=== PATIENT | male | born 1950 | race Caucasian/White ===

== ENCOUNTER 2018-08-05 16:45 | Inpatient (IN) | payer MEDICARE ==
[~2018-08-05] VITALS: Ht 177.8 cm; Wt 88.1 kg
[2018-08-05] VITALS (7 sets, daily range): BP systolic 150–180; BP diastolic 91–104
[2018-08-05] MEDS ORDERED: DILTIAZEM HCL 5 MG/ML 5 ML VIAL IV ONE (17:00)
[2018-08-05] MEDS ORDERED: DILTIAZEM HCL 5 MG/ML 5 ML VIAL IV STA (17:04)
[2018-08-05] MEDS ORDERED: SODIUM CHLORIDE 0.9% 1000ML 1,000 ML ONE (17:08)
[2018-08-05] MEDS ORDERED: SODIUM CHLORIDE 0.9% 1000ML 1,000 ML IV ONE ×2 (17:15→17:40)
[2018-08-05] MEDS ORDERED: DILTIAZEM HCL 100 ML IV ONE (17:50)
[2018-08-05] MEDS ORDERED: DILTIAZEM HCL IV SOLN 125 MG in SODIUM CHLORIDE 0.9% 100 ML 100 ML IV ONE (18:00)
--- NOTE | 2018-08-05 18:03 | Diagnostic Imaging Report ---
EXAMINATION: CHEST SINGLE (PORTABLE) INDICATION: Shortness of breath. COMPARISON: None FINDINGS: TUBES and LINES: None. LUNGS: Lungs are well inflated. Lungs are clear. There is no evidence of pneumonia or pulmonary edema. PLEURA: No pleural effusion or pneumothorax. HEART AND MEDIASTINUM: The cardiomediastinal silhouette is unremarkable. BONES AND SOFT TISSUES: No acute osseous lesion. Soft tissues are unremarkable. UPPER ABDOMEN: No free air under the diaphragm. IMPRESSION: No acute thoracic abnormality. Signed by: Dr. Jose Earl M.D. on 08/05/2018 6:00 PM
[2018-08-05] MEDS ORDERED: SODIUM CHLORIDE 0.9% 1000ML 1,000 ML IV SCH (18:15)
[2018-08-05] MEDS ORDERED: ONDANSETRON HCL INJ 2 MG/ML VIAL IV PRN (18:30)
[2018-08-05] MEDS ORDERED: ASPIRIN 81 MG CHEW TAB PO ONE (18:30)
[2018-08-05] MEDS ORDERED: SODIUM CHLORIDE FLUSH 10 ML SYR INJ PRN (18:30)
--- OUTSIDE RECORDS SUMMARY | 2018-08-05 18:44 | XMS REPORT ---
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 Allergies, Adverse Reactions, Alerts This patient has no known allergies or adverse reactions. Medications This patient has no known medications. Results Test Description Test Time Test Comments Text Results Atomic Results Result Comments CHEST SINGLE (PORTABLE) 2018-08-05 18:00:00 [facility] [address] [place] [address] Patient Name: JESE MREIDA MR #: [id number] : 1950 Age/Sex: 67/M Req #: [id number] Adm Physician: Ordered by: HECTOR CORREA MD Report #: [id number] Location: ER Room/Bed: Procedure: [id number] DX/CHEST SINGLE (PORTABLE) Exam Date: Exam Time: REPORT STATUS: Signed EXAMINATION: CHEST SINGLE (PORTABLE) INDICATION: Shortness of breath. COMPARISON: None FINDINGS: TUBES and LINES: None. LUNGS: Lungs are well inflated. Lungs are clear. There is no evidence of pneumonia or pulmonary edema. PLEURA: No pleural effusion or pneumothorax. HEART AND MEDIASTINUM: The cardiomediastinal silhouette is unremarkable. BONES AND SOFT TISSUES: No acute osseous lesion. Soft tissues are unremarkable. UPPER ABDOMEN: No free air under the diaphragm. IMPRESSION: No acute thoracic abnormality. Signed by: Dr. Jose Newell M.D. on 08/05/2018 6:00 PM Dictated By: DAPHNE NEWELL MD, MD 99 Transcribed By: NEO on 08/05/181799 COPY TO: HECTOR CORREA MD
[2018-08-05 19:01] LABS: BASOPHILS # (AUTO) 0.1 (0.0-0.1); BASOPHILS % 0.5 % (0.0-1.0); EOSINOPHILS # (AUTO) 0.2 (0.0-0.4); EOSINOPHILS % 2.1 % (0.0-6.0); HEMATOCRIT 41.5 % (38.2-49.6); HEMOGLOBIN 13.2 g/dL (14.0-18.0); LYMPHOCYTES # (AUTO) 1.8 (1.0-3.2); LYMPHOCYTES % 19.1 % (18.0-39.1); MEAN CORPUSCULAR HEMOGLOBIN 26.6 pg (28-32); MEAN CORPUSCULAR HGB CONC 31.8 g/dL (31-35); MEAN CORPUSCULAR VOLUME 83.7 fL (81-99); MONOCYTES # (AUTO) 0.8 (0.2-0.8); MONOCYTES % 8.8 % (4.4-11.3); NEUTROPHILS # (AUTO) 6.6 (2.1-6.9); NEUTROPHILS % 69.1 % (38.7-80.0); PLATELET COUNT 325 x10e3/uL (140-360); RED BLOOD COUNT 4.96 x10e6/uL (4.3-5.7); RED CELL DISTRIBUTION WIDTH 14.5 % (11.7-14.4)
[2018-08-05] MEDS: SODIUM CHLORIDE 0.9% 1000ML 1,000 ML IV SCH (19:01)
[2018-08-05 19:25] LABS: ALANINE AMINOTRANSFERASE 20 IU/L (0-55); ALBUMIN 4.1 g/dL (3.5-5.0); ALBUMIN/GLOBULIN RATIO 1.2 (0.8-2.0); ALKALINE PHOSPHATASE 97 IU/L (40-150); ANION GAP 17.1 mmol/L (8-16); BLOOD UREA NITROGEN 14 mg/dL (7-26); BUN/CREATININE RATIO 15 (6-25); CALCIUM 9.5 mg/dL (8.4-10.2); CARBON DIOXIDE 23 mmol/L (22-29); CHLORIDE 101 mmol/L (98-107); CREATININE, SERUM 0.93 mg/dL (0.72-1.25); EST GLOMERULAR FILTRATION RATE > 60 ML/MIN (60-); GLUCOSE 114 mg/dL (74-118); MAGNESIUM 1.9 MG/DL (1.3-2.1); PHOSPHORUS 3.2 MG/DL (2.3-4.7); POTASSIUM 3.1 mmol/L (3.5-5.1); SODIUM 138 mmol/L (136-145)
[2018-08-05 19:31] LABS: CREATINE KINASE 140 IU/L (30-200)
[2018-08-05 19:48] LABS: THYROID STIMULATING HORMONE 1.261 uIU/mL (0.350-4.940)
[2018-08-05] MEDS ORDERED: POTASSIUM CHLORIDE 20 MEQ TAB CR PO STA (19:51)
[2018-08-06] VITALS (47 sets, daily range): BP systolic 139–177; BP diastolic 80–108
[2018-08-06 02:31] LABS: CREATINE KINASE 102 IU/L (30-200)
[2018-08-06] MEDS ORDERED: DILTIAZEM HCL 100 ML IV SCH (03:30)
[2018-08-06] MEDS ORDERED: SODIUM CHLORIDE 0.9% 100 ML ONE (03:45)
[2018-08-06] MEDS ORDERED: DILTIAZEM HCL ONE (03:46)
[2018-08-06] MEDS ORDERED: DILTIAZEM HCL VIAL 5 ML ONE (03:50)
[2018-08-06] MEDS: SODIUM CHLORIDE 0.9% 1000ML 1,000 ML IV SCH ×3 (03:57→20:17)
[2018-08-06] MEDS ORDERED: OCUVITE TABLET1 EAC1 PO (04:09)
[2018-08-06] MEDS ORDERED: ASPIR 8181 MG PO (04:09)
[2018-08-06 05:29] LABS: ALANINE AMINOTRANSFERASE 16 IU/L (0-55); ALBUMIN 3.2 g/dL (3.5-5.0); ALBUMIN/GLOBULIN RATIO 1.2 (0.8-2.0); ALKALINE PHOSPHATASE 76 IU/L (40-150); ANION GAP 11.4 mmol/L (8-16); BLOOD UREA NITROGEN 12 mg/dL (7-26); BUN/CREATININE RATIO 15 (6-25); CALCIUM 8.6 mg/dL (8.4-10.2); CARBON DIOXIDE 25 mmol/L (22-29); CHLORIDE 107 mmol/L (98-107); CHOL/HDL RATIO 5.9 (3.9-4.7); CHOLESTEROL 165 MD/DL (0-199); CREATININE, SERUM 0.78 mg/dL (0.72-1.25); EST GLOMERULAR FILTRATION RATE > 60 ML/MIN (60-); GLUCOSE 101 mg/dL (74-118); HDL CHOLESTEROL 28 MG/DL (40-60); LDL CHOLESTEROL 118 MG/DL (60-130); MAGNESIUM 1.8 MG/DL (1.3-2.1); PHOSPHORUS 2.7 MG/DL (2.3-4.7); POTASSIUM 3.4 mmol/L (3.5-5.1); SODIUM 140 mmol/L (136-145); TRIGLYCERIDES 97 MG/DL (0-149)
--- NOTE | 2018-08-06 06:20 | Diagnostic Imaging Report ---
CHEST SINGLE (PORTABLE), 08/06/2018 7:00 AM Technique: CHEST SINGLE (PORTABLE) Comparison: Previous day Clinical history: Shortness of breath Findings: Stable appearance of the heart, mediastinum, lungs and pleural spaces. Impression: 1. Lines/Tubes: None 2. No acute abnormality. Signed by: Dr Leelee Galindo MD on 08/06/2018 6:17 AM
[2018-08-06 06:40] LABS: BASOPHILS % 0.4 % (0.0-1.0); EOSINOPHILS # (AUTO) 0.3 (0.0-0.4); EOSINOPHILS % 3.6 % (0.0-6.0); HEMATOCRIT 36.1 % (38.2-49.6); HEMOGLOBIN 11.3 g/dL (14.0-18.0); LYMPHOCYTES # (AUTO) 1.5 (1.0-3.2); LYMPHOCYTES % 19.6 % (18.0-39.1); MEAN CORPUSCULAR HEMOGLOBIN 26.8 pg (28-32); MEAN CORPUSCULAR HGB CONC 31.3 g/dL (31-35); MEAN CORPUSCULAR VOLUME 85.5 fL (81-99); MONOCYTES # (AUTO) 0.7 (0.2-0.8); MONOCYTES % 9.2 % (4.4-11.3); NEUTROPHILS # (AUTO) 5.3 (2.1-6.9); NEUTROPHILS % 66.9 % (38.7-80.0); PLATELET COUNT 241 x10e3/uL (140-360); RED BLOOD COUNT 4.22 x10e6/uL (4.3-5.7); RED CELL DISTRIBUTION WIDTH 14.6 % (11.7-14.4)
[2018-08-06] MEDS ORDERED: ZOLPIDEM TARTRATE 10 MG TAB PO PRN (07:45)
[2018-08-06] MEDS: ASPIRIN 81 MG ENTERIC COATED PO SCH (09:00)
[2018-08-06] MEDS ORDERED: ENOXAPARIN SOD INJ 60 MG/0.6 ML SYR SC SCH (09:00)
--- NOTE | 2018-08-06 09:40 | History and Physical ---
PRIMARY CARE PROVIDER: Dr. Gibbons CHIEF COMPLAINT: Atrial fibrillation with rapid ventricular response and elevated blood pressure. HISTORY OF PRESENT ILLNESS: The patient is a 67-year-old man. He was at the money room teller to have a checkup for his macular degeneration when the money room teller noted elevated blood pressure. He was sent to Dr. Gibbons's office. He received several doses of clonidine, but his blood pressure did not improve. Dr. Gibbons also noted that he had a rapid ventricular rate and he was sent to the ER. In the emergency department, he was found to have rapid atrial fibrillation. He was subsequently started on Cardizem and sent to the intensive care unit. He denies any chest pain. He does not complain of headache. He has never had high blood pressure before. He has never had heart problems before. PAST MEDICAL HISTORY 1. Tinnitus. 2. Macular degeneration. SOCIAL HISTORY: The patient has never been a smoker. He was a two-drink a day drinker up until several years ago. He has not been drinking for the past several years. ALLERGIES: THERE ARE NO KNOWN DRUG ALLERGIES. FAMILY HISTORY: Noncontributory. REVIEW OF SYSTEMS: The patient denies any fevers. He is not having any headache. He does have some chronic eye problems. He does not have neck pain. He denies any chest pain. He has no dyspnea. He has no nausea or vomiting. He has no abdominal pain. He has no leg edema. PHYSICAL EXAMINATION VITAL SIGNS: The patient is afebrile. The blood pressure is 139/80, on Cardizem at 15, his respiratory rate is 18 and his pulse is 70. He has normal sinus rhythm. His saturation is 99% on 2 liters. HEENT: Examination showed no facial swelling or erythema. The nasal mucosa is normal. The oropharynx is normal. LYMPHATIC: Examination shows no submandibular, cervical or supraclavicular adenopathy. CARDIOVASCULAR: Reveals a regular rate and rhythm with a normal S1 and S2. RESPIRATORY: Auscultation of lungs reveals clear breath sounds bilaterally. There is no wheezing. ABDOMEN: Soft and nontender. There is no rebound or guarding. EXTREMITIES: Examination of the extremities shows no leg edema or calf tenderness. EXTREMITIES: There is no cyanosis or clubbing. SKIN: No rashes. NEUROLOGIC: Exam shows no focal abnormalities. LABORATORY DATA: The BUN and creatinine ratio is normal. Potassium is 3.4. The other electrolytes are within normal limits. The albumin is 3.2. The thyroid studies are within normal limits. The hemoglobin is 11.3 with a normal MCV and a platelet count is 241. RADIOGRAPHIC DATA: The chest x-ray shows no acute disease. IMPRESSION 1. New onset atrial fibrillation with rapid ventricular rate. 2. Accelerated hypertension. PLAN 1. The patient will be weaned off Cardizem and transition to p.o. medications. 2. Anticoagulation is prophylaxis against strokes. 3. Amiodarone to prevent recurrence of irregular rhythms. 4. Awaiting cardiology consultation. 5. Cardiac diet. 6. Evaluation for cholesterol. Job#: [id number] MIGUEL
[2018-08-06] MEDS ORDERED: DILTIAZEM HCL IV SOLN 125 MG in SODIUM CHLORIDE 0.9% 100 ML IV SCH (11:00)
[2018-08-06] MEDS: ASPIRIN 81 MG CHEW TAB PO SCH (11:09)
[2018-08-06] MEDS: OCUVITE PRESERVISION TABLET PO SCH (11:10)
[2018-08-06 12:30] LABS: CREATINE KINASE 99 IU/L (30-200)
--- NOTE | 2018-08-06 13:03 | Diagnostic Imaging Report ---
EXAM: Thyroid Ultrasound INDICATION: ^Large Thyroid Nodule ^[id number] ^1130 COMPARISON: None TECHNIQUE: Transverse and sagittal images were obtained of the thyroid gland. FINDINGS: Thyroid gland: Size: Right lobe: Unable to assess Left lobe: 3.1 x 1.7 x 1.3 cm, Normal in size Isthmus: 0.5 cm, Normal in size Appearance: Homogeneous echotexture without increased vascularity Masses/Nodules: Right lobe: 5.8 x 4.0 x 4.4 cm mixed solid and cystic (1 pt) nodule replacing the right thyroid lobe with ill-defined margin (0 pts), [id number] (0 pts), isoechoic (1 pt), and punctate echogenic foci (3 pts). TR4c (>1.5 cm), Moderately Suspicious: FNA. Left lobe: No nodules. Lymph nodes: No adenopathy. Parathyroid: No focal parathyroid masses. IMPRESSION: 1. Right thyroid lobe is replaced by a 5.8 cm mixed solid and cystic nodule with internal punctate calcifications in the solid portion, which is moderately suspicious TR4c (>1.5 cm), Moderately Suspicious: FNA recommended. 2. Left thyroid lobe is unremarkable, without nodules or other focal lesions. TI-RADS Lexicon: TR1, Benign: No FNA TR2, Not Suspicious: No FNA. TR3a (<1.5 cm): No follow-up. TR3b (1.5-2.5 cm), Mildly Suspicious: Follow at 1, 3, 5 years. TR3c (>2.5 cm), Mildly Suspicious: FNA. TR4a (<1.0 cm): No follow-up. TR4b (1.0-1.5 cm), Moderately Suspicious: Follow at 1, 2, 3, 5 years. TR4c (>1.5 cm), Moderately Suspicious: FNA. TR5a (<0.5 cm): No follow-up. TR5b (0.5-1.0 cm), Highly Suspicious: Follow at 1, 2, 3, 4, 5 years. TR5c (>1.0 cm), Highly Suspicious: FNA. *Rebiopsy if new suspicious features *No recommendation at this time for significant interval growth. Nodule Characteristics: * Benign features: cystic, hyperechoic, comet-tail artifact, complete halo * Minor suspicious features: solid, hypoechoic, other calcifications * Major suspicious features: microcalcifications, marked hypoechoic (less than strap muscle), suspicious lymph nodes, taller than wide, lobulated or ill-defined margins. Literature: ACR Thyroid Imaging, Reporting and Data System (TI-RADS): White Paper of the ACR TI-RADS Committee. J Am Donya Radiol 2017. Signed by: Dr. Jaquan Motley M.D. on 08/06/2018 1:00 PM
--- NOTE | 2018-08-06 16:03 | Consultation ---
DATE OF CONSULTATION: August 06, 2018 CARDIOLOGY CONSULTATION REQUESTING PHYSICIAN: Dr. Muro. REASON FOR CONSULTATION: Hypertensive urgency and atrial fibrillation with rapid ventricular response. HISTORY OF PRESENT ILLNESS: This is a 67-year-old man with history of hypertension and macular degeneration, who was at his community leader's office yesterday when he was noted to be extremely hypertensive. He was therefore sent to Dr. Gibbons's office for evaluation. At that time, he was found to be in atrial fibrillation with rapid ventricular response and sent to the ER for further care. EKG demonstrate atrial fibrillation with rapid ventricular response and patient was started on a diltiazem drip for which she was admitted to the ICU. The patient denies any history of heart disease. Denies chest pain, shortness of breath, edema, orthopnea, PND, lightheadedness, or syncope. He does indicate he has had palpitations off and on for the last year, but has not noted any change in his exercise tolerance. REVIEW OF SYSTEMS: Negative except as per HPI. PAST MEDICAL HISTORY 1. Hypertension. 2. Macular degeneration. PAST SURGICAL HISTORY: None. SOCIAL HISTORY: Denies tobacco or illicit drugs. Does drink alcohol occasionally. FAMILY HISTORY: Denies family history of heart disease. ALLERGIES: NO KNOWN DRUG ALLERGIES. MEDICATIONS: Please see EMR. PHYSICAL EXAMINATION VITAL SIGNS: Temperature 98.5 degrees, pulse 65, respiratory rate 18, blood pressure 158/85, oxygen saturation 99% on 2 liters nasal cannula. GENERAL: Well-developed, well-nourished man, in no acute distress. HEENT: Normocephalic, atraumatic. Pupils are equal. No scleral icterus. NECK: Supple. No thyromegaly or cervical lymphadenopathy. No carotid bruits. LUNGS: Clear to auscultation bilaterally. No wheezes or crackles. CARDIOVASCULAR: Normal rate, regular rhythm. No murmur. Normal S1 and S2. ABDOMEN: Soft, nontender. EXTREMITIES: No edema. NEURO: Nonfocal exam. LABS: WBC 7.85, hemoglobin 11.3, hematocrit 36.1, platelets 241. Sodium 140, potassium 3.4, chloride 107, CO2 of 25, BUN 12, creatinine 0.78. Troponin less than 0.05. BNP 164. TSH 1.261. Chest x-ray, no acute abnormality. Thyroid ultrasound with 5.8 cm mixed, solid and cystic nodule with internal punctate calcifications in the solid portion which is mildly suspicious. FNA recommended. Left thyroid lobe is unremarkable. EKG, AFib with RVR, right bundle branch block. TELEMETRY: Normal sinus rhythm. IMPRESSION 1. Newly diagnosed atrial fibrillation with rapid ventricular response, now normal sinus rhythm. 2. Hypertension, uncontrolled. 3. Mixed, solid and cystic nodule in the right thyroid lobe. 4. Macular degeneration. RECOMMENDATIONS: Echocardiogram demonstrates normal LVEF, but moderate concentric LVH. Start p.o. diltiazem, wean off diltiazem drip. Discuss anticoagulation with patient, specifically Coumadin versus NOAC. Patient express preference for NOAC. We will start Eliquis 5 mg p.o. b.i.d. Patient will need further antihypertensive therapy based on blood pressure response to diltiazem. Further evaluation of thyroid per primary service. Thank you for this consult. We will continue to follow. Job#: [id number] WINNIE
[2018-08-06] MEDS: DILTIAZEM HCL ER 90MG CAPSULE PO SCH (16:30)
[2018-08-06] MEDS: APIXABAN 5 MG TABLET PO SCH (16:31)
[2018-08-07] VITALS (26 sets, daily range): BP systolic 115–171; BP diastolic 76–110
[2018-08-07] MEDS ORDERED: ENALAPRILAT IV INJ 1.25 MG/ML VIAL ONE (00:22)
[2018-08-07] MEDS ORDERED: CARVEDILOL 12.5 MG TAB ONE (00:23)
[2018-08-07] MEDS: CARVEDILOL 12.5 MG TAB PO SCH ×2 (00:30→08:13)
[2018-08-07] MEDS ORDERED: ENALAPRILAT IV INJ 1.25 MG/ML VIAL IV PRN (00:30)
[2018-08-07] MEDS: SODIUM CHLORIDE 0.9% 1000ML 1,000 ML IV SCH (04:45)
[2018-08-07] MEDS ORDERED: INFLUENZA VIRUS VAC SPLIT INJ 0.5 ML SYR IM ONE ×2 (06:30→06:45)
[2018-08-07] MEDS ORDERED: PNEUMOCOCCAL VACCINE POLYVALENT 23 MCG/0.5 ML VIAL ONE (06:30)
[2018-08-07] MEDS ORDERED: PNEUMOCOCCAL VACCINE POLYVALENT 23 MCG/0.5 ML VIAL IM ONE (06:45)
[2018-08-07] MEDS: ASPIRIN 81 MG CHEW TAB PO SCH (08:12)
[2018-08-07] MEDS: ASPIRIN 81 MG ENTERIC COATED PO SCH (08:12)
[2018-08-07] MEDS: DILTIAZEM HCL ER 90MG CAPSULE PO SCH (08:12)
[2018-08-07] MEDS: APIXABAN 5 MG TABLET PO SCH (08:13)
[2018-08-07] MEDS: OCUVITE PRESERVISION TABLET PO SCH (08:13)
--- NOTE | 2018-08-07 17:43 | Progress Note ---
DATE: August 07, 2018 CARDIOLOGY PROGRESS NOTE SUBJECTIVE: The patient denies chest pain or shortness of breath. OBJECTIVE VITAL SIGNS: Temperature 98.4 degrees, pulse 65, respiratory rate 18, blood pressure 135/79, oxygen saturation 97% on room air. GENERAL: Awake, alert, in no acute distress. LUNGS: Clear to auscultation bilaterally. No wheezes or crackles. CARDIOVASCULAR: Normal rate, regular rhythm. No murmur. Normal S1, S2. ABDOMEN: Soft, nontender. EXTREMITIES: No edema. CARDIAC MEDICATIONS 1. Coreg 12.5 mg p.o. b.i.d. 2. Apixaban 5 mg p.o. b.i.d. 3. Diltiazem 180 mg p.o. b.i.d. LABS: None today. TELEMETRY: Normal sinus rhythm. IMPRESSION 1. Newly diagnosed atrial fibrillation with rapid ventricular response, now normal sinus rhythm. 2. Hypertension. 3. Mixed solid and cystic nodule in the right thyroid lobe. 4. Macular degeneration. RECOMMENDATIONS: Echocardiogram demonstrates normal LVEF, but moderate concentric LVH. She has been weaned off diltiazem with initiation of p.o. medication. Heart rate is controlled and blood pressure is acceptable. Discussed warfarin versus NOAC. Patient express preference for NOAC and upon discussing with insurance company, Xarelto is the preferred agent, so patient will be therefore discharge on Xarelto for CAD prophylaxis instead of Eliquis. Continue diltiazem and Coreg. Further evaluation of thyroid per primary service. Patient will follow up with us in the office in 2 weeks. Thank you for this consult. We will continue to follow. Job#: [id number] NAYELI
--- NOTE | 2018-08-08 00:11 | Discharge Summary ---
DISCHARGE DIAGNOSES 1. Atrial fibrillation with rapid ventricular response. 2. Accelerated hypertension. CONSULTING PHYSICIAN: Dr. Carter of cardiology. DIAGNOSTIC STUDIES: Echocardiogram was within normal limits. Chest x-ray showed no active disease. HISTORY OF PRESENT ILLNESS: The patient is a 67-year-old man. He went to see the farmworker dairy regarding his macular degeneration when he was noted to have high blood pressure. He was subsequently referred to Dr. Richards who gave him clonidine twice but was unable to bring down his blood pressure. He sent him to the emergency department. He was subsequently discovered to have atrial fibrillation with a rapid ventricular rate. HOSPITAL COURSE: The patient was admitted. He was started on IV Cardizem and converted spontaneously. His blood pressure also improved. He was started on Lovenox. Cardiology saw the patient in consultation. His thyroid studies were normal. The echocardiogram was within normal limits. He was switched to carvedilol twice daily and diltiazem. He remained in normal sinus rhythm with this, and his blood pressure improved. DISPOSITION: Patient was discharged home. FOLLOW-UP: He will follow up with Dr. Richards as well as Dr. Carter. Job#: [id number] LPA cc:DR. JEN RICHARDS
[2018-08-08] MEDS ORDERED: INFLUENZA VIRUS VAC SPLIT INJ 0.5 ML SYR IM ONE (09:00)
[2018-08-08] MEDS ORDERED: PNEUMOCOCCAL VACCINE POLYVALENT 23 MCG/0.5 ML VIAL IM ONE (09:00)
== END 2018-08-07 12:55 | disposition home or self-care (01) | DRG 310 ==
LOC: ER 16:45 → ERHOLD 18:42 → ICU 22:54
PROVIDERS: ADMIT Internal Medicine Critical Care Medicine; ATTEND Internal Medicine Critical Care Medicine
DX: I48.91 Unspecified atrial fibrillation (principal); I16.0 Hypertensive urgency; E04.1 Nontoxic single thyroid nodule; H35.30 Unspecified macular degeneration
CPT/HCPCS: 36415; 71045; 76536; 80053; 80061; 82550; 82553; 83735; 83880; 84100; 84436; 84443; 84479; 84484; 85025; 90732; 93005; 93306; 96361; 99284; J1650; J7030; J7050

== ENCOUNTER 2020-09-14 10:23 | Inpatient (IN) | payer MEDICARE ==
[~2020-09-14] VITALS: Ht 177.8 cm; Wt 77.1 kg
[~2020-09-14 10:23] MED LIST: ASPIR 8181 MG PO; OCUVITE TABLET1 EAC1 PO
[2020-09-14] MEDS ORDERED: SODIUM CHLORIDE 0.9% 1000ML 1,000 ML IV STA (10:33)
[2020-09-14 10:52] LABS: BASOPHILS # (AUTO) 0.1 (0.0-0.1); BASOPHILS % 0.5 % (0.0-1.0); EOSINOPHILS # (AUTO) 1.7 (0.0-0.4); HEMATOCRIT 33.3 % (38.2-49.6); HEMOGLOBIN 10.2 g/dL (14.0-18.0); LYMPHOCYTES # (AUTO) 1.5 (1.0-3.2); LYMPHOCYTES % 9.4 % (18.0-39.1); MEAN CORPUSCULAR HEMOGLOBIN 25.8 pg (28-32); MEAN CORPUSCULAR HGB CONC 30.6 g/dL (31-35); MEAN CORPUSCULAR VOLUME 84.1 fL (81-99); MONOCYTES # (AUTO) 1.3 (0.2-0.8); MONOCYTES % 8.3 % (4.4-11.3); NEUTROPHILS % 70.4 % (38.7-80.0); PLATELET COUNT 350 x10e3/uL (140-360); RED BLOOD COUNT 3.96 x10e6/uL (4.3-5.7); RED CELL DISTRIBUTION WIDTH 14.9 % (11.7-14.4)
[2020-09-14 10:59] LABS: INR 1.06; PROTHROMBIN TIME 14.3 seconds (11.9-14.5)
[2020-09-14 11:00] LABS: PARTIAL THROMBOPLASTIN TIME 29.7 seconds (23.8-35.5)
[2020-09-14 11:08] LABS: ALBUMIN 3.4 g/dL (3.5-5.0); ALBUMIN/GLOBULIN RATIO 0.9 (0.8-2.0); ANION GAP 14.3 mmol/L (8-16); CALCIUM 8.8 mg/dL (8.4-10.2); CREATININE, SERUM 1.25 mg/dL (0.72-1.25); POTASSIUM 4.3 mmol/L (3.5-5.1)
[2020-09-14] MEDS ORDERED: SODIUM CHLORIDE 0.9% 50ML 50 ML ONE (11:24)
[2020-09-14] MEDS ORDERED: IOPAMIDOL 370 MG/ML 200 ML INFUS..BTL INJ ONE (11:24)
[2020-09-14 12:41] LABS: COLOR,URINE YELLOW (YELLOW)
[2020-09-14 12:42] LABS: CLARITY,URINE CLEAR (CLEAR); KETONES,URINE NEGATIVE (NEGATIVE); LEUKOCYTE ESTERASE ,URINE NEGATIVE (NEGATIVE); NITRITE,URINE NEGATIVE (NEGATIVE); PROTEIN,URINE DIPSTICK NEGATIVE (NEGATIVE); URINE UROBILINOGEN 0.2 mg/dL (0.2 - 1)
[2020-09-14 12:50] LABS: WBC,URINE (MAN) 0-5 /HPF (0-5)
[2020-09-14 12:51] LABS: BACTERIA,URINE FEW /HPF; EPITHELIAL CELLS,URINE RARE /LPF; MUCUS,URINE FEW (RARE)
[2020-09-14] MEDS ORDERED: ONDANSETRON HCL INJ 2MG/ML 2ML 2 MG/ML VIAL IV PRN (15:45)
[2020-09-14] MEDS ORDERED: MORPHINE SULFATE INJ 4 MG/ML INJ 1ML IV PRN (16:00)
[2020-09-14] MEDS ORDERED: CLONIDINE HCL 0.1 MG TAB PO PRN (16:00)
[2020-09-14] MEDS ORDERED: ACETAMINOPHEN 325 MG TAB PO PRN (16:00)
[2020-09-14] MEDS ORDERED: CARVEDILOL12.5 MG PO ×2 (17:22→17:28)
[2020-09-14] MEDS ORDERED: CARDIZEM60 MG PO (17:22)
[2020-09-14] MEDS ORDERED: CARDIZEM CD180 MG PO (17:28)
[2020-09-14] MEDS ORDERED: PIPER-TAZ 3.375 GM 50 ML IV SCH (18:00)
[2020-09-14] MEDS: SODIUM CHLORIDE 0.9% 1000ML 1,000 ML IV SCH (18:09)
[2020-09-14 18:27] VITALS: BP 170/83
[2020-09-14 19:49] VITALS: BP 155/98
[2020-09-14] MEDS: CARVEDILOL 12.5 MG TAB PO SCH (21:00)
[2020-09-14] MEDS ORDERED: CARVEDILOL 3.125 MG TAB PO SCH (21:00)
[2020-09-14] MEDS ORDERED: VANCOMYCIN 1GM/NS 250 ML 250 ML IV ONE (21:00)
[2020-09-14] MEDS ORDERED: DILTIAZEM HCL ER 90MG CAPSULE PO SCH (21:00)
[2020-09-14 21:04] VITALS: BP 155/98
[2020-09-15] VITALS (8 sets, daily range): BP systolic 133–152; BP diastolic 89–97
[2020-09-15] MEDS ORDERED: PIPER-TAZ 3.375 GM 50 ML IV SCH
[2020-09-15] MEDS: SODIUM CHLORIDE 0.9% 1000ML 1,000 ML IV SCH ×3 (05:15→21:57)
[2020-09-15 06:46] LABS: BASOPHILS # (AUTO) 0.1 (0.0-0.1); BASOPHILS % 0.5 % (0.0-1.0); EOSINOPHILS # (AUTO) 1.6 (0.0-0.4); EOSINOPHILS % 14.3 % (0.0-6.0); HEMATOCRIT 29.3 % (38.2-49.6); LYMPHOCYTES # (AUTO) 1.3 (1.0-3.2); LYMPHOCYTES % 11.6 % (18.0-39.1); MEAN CORPUSCULAR HEMOGLOBIN 25.8 pg (28-32); MEAN CORPUSCULAR HGB CONC 30.7 g/dL (31-35); MONOCYTES % 9.2 % (4.4-11.3); NEUTROPHILS # (AUTO) 7.2 (2.1-6.9); PLATELET COUNT 299 x10e3/uL (140-360); RED BLOOD COUNT 3.49 x10e6/uL (4.3-5.7)
[2020-09-15 07:10] LABS: ALANINE AMINOTRANSFERASE 9 IU/L (0-55); ALBUMIN 2.7 g/dL (3.5-5.0); ALBUMIN/GLOBULIN RATIO 0.8 (0.8-2.0); ALKALINE PHOSPHATASE 81 IU/L (40-150); ANION GAP 9.2 mmol/L (8-16); BLOOD UREA NITROGEN 22 mg/dL (7-26); BUN/CREATININE RATIO 23 (6-25); CALCIUM 8.3 mg/dL (8.4-10.2); CARBON DIOXIDE 24 mmol/L (22-29); CHLORIDE 108 mmol/L (98-107); CREATININE, SERUM 0.96 mg/dL (0.72-1.25); EST GLOMERULAR FILTRATION RATE > 60 ML/MIN (60-); GLUCOSE 93 mg/dL (74-118); POTASSIUM 4.2 mmol/L (3.5-5.1); SODIUM 137 mmol/L (136-145)
[2020-09-15 07:11] LABS: % IRON SATURATION 18 % (15-50); IRON 41 ug/dL (65-175); TOTAL IRON BINDING CAPACITY 228 ug/dL (261-478); TRANSFERRIN 163 mg/dL (174-364)
[2020-09-15 07:26] LABS: FREE T4 (FREE THYROXINE) 0.99 ng/dL (0.8-1.8); THYROID STIMULATING HORMONE 1.01 uIU/mL (0.350-4.940)
[2020-09-15] MEDS: CARVEDILOL 12.5 MG TAB PO SCH ×2 (09:50→20:39)
[2020-09-15] MEDS ORDERED: VANCOMYCIN 1GM/NS 250 ML 250 ML IV ONE (12:15)
[2020-09-15] MEDS: DILTIAZEM HCL ER 90MG CAPSULE PO SCH ×2 (12:31→17:57)
[2020-09-16] VITALS (8 sets, daily range): BP systolic 128–164; BP diastolic 76–95
[2020-09-16] MEDS: SODIUM CHLORIDE 0.9% 1000ML 1,000 ML IV SCH ×2 (07:45→16:09)
[2020-09-16] MEDS: DILTIAZEM HCL ER 90MG CAPSULE PO SCH ×2 (08:00→16:40)
[2020-09-16] MEDS: CARVEDILOL 12.5 MG TAB PO SCH ×2 (08:00→20:07)
[2020-09-16] MEDS ORDERED: ONDANSETRON HCL 4 MG ORAL DISINTEGRATING TAB PO PRN (13:00)
[2020-09-16] MEDS: IBUPROFEN 600 MG TAB PO PRN (14:52)
[2020-09-17] VITALS (7 sets, daily range): BP systolic 132–168; BP diastolic 79–91
[2020-09-17] MEDS: SODIUM CHLORIDE 0.9% 1000ML 1,000 ML IV SCH ×2 (01:51→14:00)
[2020-09-17 06:47] LABS: BASOPHILS % 0.4 % (0.0-1.0); EOSINOPHILS # (AUTO) 1.5 (0.0-0.4); EOSINOPHILS % 13.5 % (0.0-6.0); LYMPHOCYTES # (AUTO) 1.4 (1.0-3.2); LYMPHOCYTES % 12.5 % (18.0-39.1); MEAN CORPUSCULAR HEMOGLOBIN 25.4 pg (28-32); MEAN CORPUSCULAR VOLUME 84.7 fL (81-99); MONOCYTES # (AUTO) 0.9 (0.2-0.8); MONOCYTES % 8.4 % (4.4-11.3); NEUTROPHILS # (AUTO) 7.1 (2.1-6.9); NEUTROPHILS % 64.9 % (38.7-80.0); PLATELET COUNT 267 x10e3/uL (140-360); RED BLOOD COUNT 3.54 x10e6/uL (4.3-5.7); RED CELL DISTRIBUTION WIDTH 14.9 % (11.7-14.4)
[2020-09-17 07:14] LABS: ANION GAP 9.1 mmol/L (8-16); BLOOD UREA NITROGEN 16 mg/dL (7-26); BUN/CREATININE RATIO 19 (6-25); CALCIUM 8.3 mg/dL (8.4-10.2); CARBON DIOXIDE 24 mmol/L (22-29); CHLORIDE 108 mmol/L (98-107); CREATININE, SERUM 0.85 mg/dL (0.72-1.25); EST GLOMERULAR FILTRATION RATE > 60 ML/MIN (60-); GLUCOSE 96 mg/dL (74-118); POTASSIUM 4.1 mmol/L (3.5-5.1); SODIUM 137 mmol/L (136-145)
[2020-09-17] MEDS: CARVEDILOL 12.5 MG TAB PO SCH ×2 (08:56→20:43)
[2020-09-17] MEDS: DILTIAZEM HCL ER 90MG CAPSULE PO SCH ×2 (08:56→18:25)
[2020-09-17] MEDS ORDERED: KETOROLAC TROMETHAMINE 30 MG/ML VIAL ONE (11:49)
[2020-09-17] MEDS ORDERED: DEXAMETHASONE SOD PHOS INJ 4 MG/ML VIAL ONE (11:49)
[2020-09-17] MEDS ORDERED: ONDANSETRON HCL INJ 2MG/ML 2ML 2 MG/ML VIAL ONE (11:49)
[2020-09-17] MEDS ORDERED: PROPOFOL IV EMULSION 10 MG/ML 20 ML VIAL ONE (11:49)
[2020-09-17] MEDS ORDERED: DESFLURANE 240 ML BTL INH ONE (11:49)
[2020-09-17] MEDS: IBUPROFEN 600 MG TAB PO PRN (20:44)
[2020-09-18] VITALS (8 sets, daily range): BP systolic 101–155; BP diastolic 68–94
[2020-09-18] MEDS: SODIUM CHLORIDE 0.9% 1000ML 1,000 ML IV SCH (02:29)
[2020-09-18 06:30] LABS: BASOPHILS % 0.1 % (0.0-1.0); EOSINOPHILS % 0.1 % (0.0-6.0); HEMATOCRIT 30.5 % (38.2-49.6); HEMOGLOBIN 9.4 g/dL (14.0-18.0); LYMPHOCYTES # (AUTO) 0.7 (1.0-3.2); LYMPHOCYTES % 6.6 % (18.0-39.1); MEAN CORPUSCULAR HEMOGLOBIN 25.5 pg (28-32); MEAN CORPUSCULAR HGB CONC 30.8 g/dL (31-35); MEAN CORPUSCULAR VOLUME 82.7 fL (81-99); MONOCYTES # (AUTO) 0.2 (0.2-0.8); MONOCYTES % 1.8 % (4.4-11.3); NEUTROPHILS # (AUTO) 9.5 (2.1-6.9); NEUTROPHILS % 90.8 % (38.7-80.0); PLATELET COUNT 282 x10e3/uL (140-360); RED BLOOD COUNT 3.69 x10e6/uL (4.3-5.7)
[2020-09-18 06:54] LABS: ANION GAP 9.4 mmol/L (8-16); BLOOD UREA NITROGEN 21 mg/dL (7-26); BUN/CREATININE RATIO 21 (6-25); CALCIUM 8.3 mg/dL (8.4-10.2); CARBON DIOXIDE 22 mmol/L (22-29); CHLORIDE 109 mmol/L (98-107); CREATININE, SERUM 1.01 mg/dL (0.72-1.25); EST GLOMERULAR FILTRATION RATE > 60 ML/MIN (60-); GLUCOSE 129 mg/dL (74-118); POTASSIUM 4.4 mmol/L (3.5-5.1); SODIUM 136 mmol/L (136-145)
[2020-09-18] MEDS: DILTIAZEM HCL ER 90MG CAPSULE PO SCH ×2 (08:49→17:26)
[2020-09-18] MEDS: CARVEDILOL 12.5 MG TAB PO SCH ×2 (08:50→20:30)
[2020-09-18] MEDS: IBUPROFEN 600 MG TAB PO PRN (20:30)
[2020-09-19] VITALS (7 sets, daily range): BP systolic 118–150; BP diastolic 77–83
[2020-09-19] MEDS: DILTIAZEM HCL ER 90MG CAPSULE PO SCH ×2 (08:42→17:45)
[2020-09-19] MEDS: CARVEDILOL 12.5 MG TAB PO SCH ×2 (08:42→23:56)
[2020-09-20] VITALS (8 sets, daily range): BP systolic 112–136; BP diastolic 74–84
[2020-09-20] MEDS: IBUPROFEN 600 MG TAB PO PRN ×2 (00:05→20:50)
[2020-09-20] MEDS: DILTIAZEM HCL ER 90MG CAPSULE PO SCH ×2 (09:50→17:08)
[2020-09-20] MEDS: CARVEDILOL 12.5 MG TAB PO SCH ×2 (09:51→20:29)
[2020-09-21 00:25] VITALS: BP 103/68
[2020-09-21 06:00] VITALS: BP 120/79
[2020-09-21 08:00] VITALS: BP 130/86
[2020-09-21] MEDS: DILTIAZEM HCL ER 90MG CAPSULE PO SCH ×2 (08:59→17:10)
[2020-09-21] MEDS: CARVEDILOL 12.5 MG TAB PO SCH ×2 (08:59→21:00)
[2020-09-21 12:00] VITALS: BP 131/82
[2020-09-21 20:00] VITALS: BP 125/67
[2020-09-22] VITALS (8 sets, daily range): BP systolic 107–147; BP diastolic 67–88
[2020-09-22 06:40] LABS: BASOPHILS % 0.3 % (0.0-1.0); EOSINOPHILS % 16.3 % (0.0-6.0); HEMATOCRIT 29.7 % (38.2-49.6); HEMOGLOBIN 9.2 g/dL (14.0-18.0); LYMPHOCYTES # (AUTO) 1.6 (1.0-3.2); MEAN CORPUSCULAR HEMOGLOBIN 25.7 pg (28-32); MONOCYTES # (AUTO) 1.3 (0.2-0.8); MONOCYTES % 10.7 % (4.4-11.3); NEUTROPHILS # (AUTO) 7.4 (2.1-6.9); NEUTROPHILS % 59.2 % (38.7-80.0); PLATELET COUNT 306 x10e3/uL (140-360); RED BLOOD COUNT 3.58 x10e6/uL (4.3-5.7); RED CELL DISTRIBUTION WIDTH 15.7 % (11.7-14.4)
[2020-09-22] MEDS: DILTIAZEM HCL ER 90MG CAPSULE PO SCH ×2 (09:24→17:37)
[2020-09-22] MEDS: CARVEDILOL 12.5 MG TAB PO SCH ×2 (09:24→21:00)
[2020-09-22 11:00] LABS: EOSINOPHILS % (MANUAL) 25 % (0-7); LYMPHOCYTES % (MANUAL) 9 % (19-48); MONOCYTES % (MANUAL) 4 % (3.4-9.0); NEUTROPHILS % (MANUAL) 62 % (40-74)
[2020-09-22 11:04] LABS: RBC MORPHOLOGY COMMENT NORMAL
[2020-09-22 11:06] LABS: PLATELET ESTIMATE ADEQUATE; PLATELET MORPHOLOGY COMMENT NORMAL
[2020-09-23] VITALS (8 sets, daily range): BP systolic 126–158; BP diastolic 71–90
[2020-09-23] MEDS: DILTIAZEM HCL ER 90MG CAPSULE PO SCH ×2 (09:28→16:31)
[2020-09-23] MEDS: CARVEDILOL 12.5 MG TAB PO SCH ×2 (09:28→20:58)
[2020-09-24] VITALS (9 sets, daily range): BP systolic 109–143; BP diastolic 76–92
[2020-09-24] MEDS ORDERED: FENTANYL CITRATE/PF 100MCG/2 ML INJ ONE (08:52)
[2020-09-24] MEDS ORDERED: MIDAZOLAM HCL 2 MG/2 ML VIAL ONE (08:52)
[2020-09-24] MEDS: CARVEDILOL 12.5 MG TAB PO SCH ×2 (09:00→21:16)
[2020-09-24] MEDS: DILTIAZEM HCL ER 90MG CAPSULE PO SCH ×2 (09:00→17:34)
[2020-09-24] MEDS ORDERED: MORPHINE SULFATE INJ 4 MG/ML INJ 1ML ONE (09:45)
[2020-09-24] MEDS ORDERED: MORPHINE SULFATE INJ 2 MG/ML SYR IV PRN (11:00)
[2020-09-25] VITALS: BP 110/67
[2020-09-25 04:00] VITALS: BP 119/88
[2020-09-25] MEDS: CARVEDILOL 12.5 MG TAB PO SCH (08:32)
[2020-09-25] MEDS: DILTIAZEM HCL ER 90MG CAPSULE PO SCH ×2 (08:32→16:14)
[2020-09-25 08:41] VITALS: BP 131/75
[2020-09-25 08:54] VITALS: BP 131/75
[2020-09-25 12:54] VITALS: BP 122/67
[2020-09-25] MEDS ORDERED: CEFTIN PO (13:18)
[2020-09-25 17:05] VITALS: BP 112/91
== END 2020-09-25 18:23 | disposition home or self-care (01) | DRG 983 ==
LOC: ER 11:14 → ERHOLD 15:42 → MED/SURG3 17:06
PROC: 0KD20ZZ Extraction of Right Neck Muscle, Open Approach (ICD-10-PCS; principal; 2020-09-14)
DX: C76.0 Malignant neoplasm of head, face and neck (principal); R91.8 Other nonspecific abnormal finding of lung field; D64.9 Anemia, unspecified; I10 Essential (primary) hypertension; I48.91 Unspecified atrial fibrillation; Z79.01 Long term (current) use of anticoagulants; D63.8 Anemia in other chronic diseases classified elsewhere; Z20.828 Contact with and (suspected) exposure to other viral communicable diseases
CPT/HCPCS: 32405; 36415; 70491; 71045; 71046; 71260; 74470; 76536; 77012; 80048; 80053; 81001; 83540; 83605; 84439; 84443; 84466; 85025; 85610; 85730; 87040; 87071; 87075; 87086; 87102; 87116; 87205; 87206; 88304; 88305; 88312; 88333; 88342; 93005; 99152; 99153; 99284; J1100; J1885; J2250; J2270; J2405; J2543; J3010; J3370; J7030; Q9967; U0002